=== PATIENT | female | born 1960 | race Caucasian/White ===

== ENCOUNTER 2020-03-10 18:52 | Inpatient (IN) | payer OTHER ==
[~2020-03-10] VITALS: Ht 167.6 cm; Wt 52.6 kg
[2020-03-10] MEDS ORDERED: IV NS 0.9% 1,000 ML BAG IV ONE (19:30)
[2020-03-10 19:36] LABS: BASOPHILS % (AUTO) 0.3 % (0.0-2.0); EOSINOPHILS % (AUTO) 0.2 % (0.0-6.0); HEMATOCRIT 41 % (33-45); HEMOGLOBIN 13.9 g/dL (11.5-14.8); LYMPHOCYTES # (AUTO) 1.9 /CMM (0.8-4.8); LYMPHOCYTES % (AUTO) 19.1 % (20.0-44.0); MEAN CORPUSCULAR HGB CONC 34 g/dl (31.0-36.0); MEAN CORPUSCULAR VOLUME 101 fL (82-100); MONOCYTES # (AUTO) 0.5 /CMM (0.1-1.30); MONOCYTES % (AUTO) 5.2 % (2.0-12.0); NEUTROPHILS # (AUTO) 7.4 /CMM (1.8-8.9); NEUTROPHILS % (AUTO) 75.2 % (43.0-81.0); PLATELET COUNT (AUTO) 207 /CMM (150-450); RED BLOOD CELL COUNT(AUTO) 4.06 MIL/uL (4.0-5.2); WHITE BLOOD COUNT (AUTO) 9.9 K/uL (4.3-11.0)
--- NOTE | 2020-03-10 19:39 | NUR ---
[id number], from home, weakness and diarrhea x 4 days, cough x 1 month. PT AAOX4, VSS. RR EVEN & UNLABORED. 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 DENIES ANDREWS, DIZZINESS, NUMBNESS/WEAKNESS AT THIS TIME. PT SEEN & EVAL'D BY DR. ORR. WILL CONT TO MONITOR.
[2020-03-10 19:59] LABS: CALCIUM, SERUM 9.2 mg/dL (8.5-10.1); POTASSIUM 3.7 mmol/L (3.5-5.1)
[2020-03-10 20:05] LABS: ALBUMIN 3.4 g/dL (3.4-5.0); BILIRUBIN,DIRECT 0.3 mg/dL (0.0-0.2); BILIRUBIN,TOTAL 0.6 mg/dL (0.2-1.0); TOTAL PROTEIN, SERUM 7.5 g/dL (6.4-8.2)
[2020-03-10 20:56] LABS: APPEARANCE,URINE CLEAR (CLEAR); BILIRUBIN,URINE NEGATIVE (NEGATIVE); BLOOD, URINE TRACE-INTA Ery/uL (NEGATIVE); COLOR,URINE YELLOW (YELLOW); KETONES,URINE TRACE (NEGATIVE); LEUKOCYTE ESTERASE ,URINE SMALL (NEGATIVE); NITRITE, URINE NEGATIVE (NEGATIVE); PH,URINE 7.5 (5.0-8.0); PROTEIN,URINE NEGATIVE (NEGATIVE); UGLUCOSE NEGATIVE (NEGATIVE); UROBILINOGEN,URINE 0.2 EU/dL (0.2)
[2020-03-10 21:04] LABS: BACTERIA,URINE None seen /HPF (None Seen); SQUAMOUS EPITHELIAL CELL,UR 0-2 /HPF (None Seen)
--- NOTE | 2020-03-10 22:00 | NUR ---
NOVEMBER ( FINANCIAL COORDINATOR ) [facility]. PT WILL GO TO [facility]. ACCEPTING MD: DR. MALLORY
--- NOTE | 2020-03-10 22:09 | NUR ---
FOUND PT USING CELLPHONE TALKING TO HER BROTHER, ADDIE. DENIES NUMBNESS/TINGLING SENSATION, ANDREWS, DIZZINESS, N/V, CP, SOB AT THIS TIME. PT ABLE SPEAK FLUENTLY, NO SLURRED SPEECH. NO ARM/LEG DRIFTING, NO ACUTE DISTRESS NOTED AT THIS TIME. ON TELE, NSR. WILL CONT TO MONITOR.
--- NOTE | 2020-03-11 01:00 | NUR ---
PT RESTING COMFORTABLY IN BED. NO ACUTE DISTRESS NOTED. WILL CONTINUE TO MONITOR
--- NOTE | 2020-03-11 01:36 | NUR ---
COVID SWAB COLLECTED AND SENT TO LAB
[2020-03-11] MEDS ORDERED: CITA40TA11 PO (03:22)
[2020-03-11] MEDS ORDERED: TRAZ-182 PO (03:22)
--- NOTE | 2020-03-11 04:07 | NUR ---
REPORT GIVEN TO EDGAR SHRESTHA FOR [facility]
--- NOTE | 2020-03-11 04:10 | NUR ---
TELE/RN NOTES RECEIVED REPORT FROM LASHAWN [facility], PATIENT WILL BECOMING TO ROOM 319
--- NOTE | 2020-03-11 04:25 | NUR ---
TELE/RN OPENING NOTES PATIENT ARRIVES ON UNIT VIA GURNEY. NO INJURIES DURING TRANSPORT. PATIENT IS ALERT AND ORIENTED X 4. STATES NO PAIN AT THE MOMENT. PATIENT IS ON ROOM AIR TOLERATING WELL. NO SIGNS OF SOB OR RESPIRATORY DISTRESS. PATIENT HAVE IV ACCES INTACT IN RIGHT AC G #20. SKIN IS INTACT. NO DISTRESS NOTED AT THIS TIME. SAFETY MEASURES ARE IN PLACE BED IS LOCKED AND PLACED IN THE LOWEST POSITION SIDE RAIL UP X 2. CALL LIGHT IN REACH. WILL CONTINUE TO MONITOR.
--- NOTE | 2020-03-11 04:30 | NUR ---
PT TRANSFERRED TO ROOM IN STABLE CONDITION
[2020-03-11] MEDS ORDERED: ACETAMINOPHEN 325 MG TABLET PO PRN (05:00)
[2020-03-11] MEDS ORDERED: HYDROCODONE/APAP 5/325MG TABLET PO PRN (05:00)
--- NOTE | 2020-03-11 06:00 | NUR ---
TELE/RN NOTES PATIENT EXPLAINED CONSENT FOR MRI OF THE HEAD AND BODY CHECK LIST FOR MRI.
--- NOTE | 2020-03-11 06:50 | NUR ---
TELE/RN CLOSING NOTES PATIENT IS IN BED RESTING. PATIENT IS ALERT AND ORIENTED X 4. STATES NO PAIN AT THE MOMENT. PATIENT IS ON ROOM AIR TOLERATING WELL. NO SIGNS OF SOB OR RESPIRATORY DISTRESS. PATIENT HAVE IV ACCES INTACT IN RIGHT AC G #20. NO DISTRESS NOTED AT THIS TIME. SAFETY MEASURES ARE IN PLACE BED IS LOCKED AND PLACED IN THE LOWEST POSITION SIDE RAIL UP X 2. ALL PATIENT NEEDS HAVE BEEN MET DURING SHIFT. CALL LIGHT IN REACH. WILL ENDORSE CARE TO DAY SHIFT.
[2020-03-11 06:56] LABS: BASOPHILS # (AUTO) 0.1 /CMM (0.0-0.2); BASOPHILS % (AUTO) 0.5 % (0.0-2.0); EOSINOPHILS % (AUTO) 0.4 % (0.0-6.0); HEMATOCRIT 39 % (33-45); HEMOGLOBIN 12.7 g/dL (11.5-14.8); LYMPHOCYTES # (AUTO) 2.4 /CMM (0.8-4.8); LYMPHOCYTES % (AUTO) 20.6 % (20.0-44.0); MEAN CORPUSCULAR HGB CONC 32 g/dl (31.0-36.0); MEAN CORPUSCULAR VOLUME 102 fL (82-100); MONOCYTES # (AUTO) 0.7 /CMM (0.1-1.30); MONOCYTES % (AUTO) 5.8 % (2.0-12.0); NEUTROPHILS # (AUTO) 8.4 /CMM (1.8-8.9); NEUTROPHILS % (AUTO) 72.7 % (43.0-81.0); PLATELET COUNT (AUTO) 183 /CMM (150-450); RED BLOOD CELL COUNT(AUTO) 3.84 MIL/uL (4.0-5.2); WHITE BLOOD COUNT (AUTO) 11.6 K/uL (4.3-11.0)
[2020-03-11 07:28] LABS: THYROID STIMULATING HORMONE 1.866 uIU/mL (0.358-3.74)
[2020-03-11 07:29] LABS: ALBUMIN 2.6 g/dL (3.4-5.0); BILIRUBIN,TOTAL 0.5 mg/dL (0.2-1.0); CALCIUM, SERUM 8.1 mg/dL (8.5-10.1); CREATININE 0.7 mg/dL (0.6-1.3); POTASSIUM 3.6 mmol/L (3.5-5.1); TOTAL PROTEIN, SERUM 6.1 g/dL (6.4-8.2)
--- NOTE | 2020-03-11 07:30 | NUR ---
RN Opening note Received patient AO x 3-4, able to responds all stimuli. Denies pain but c/o numbness finger tips and lower extremities. Skin is warm to touch, keep clean/dry, intact IV site. Respiratory even and unlabored in room air, no distress observed. Keep bed in locked with elevated HOB for ensure airway and aspiration precaution, call light within reach, will continue to monitor.
[2020-03-11 08:00] VITALS: BP 156/95
--- NOTE | 2020-03-11 08:04 | NUR ---
MRI APPROVED BY DR. CAREY. ICE CREAM SCOOPER RYAN NOTIFIED VIA TEXT
[2020-03-11 08:59] VITALS: BP 156/95
[2020-03-11] MEDS ORDERED: METOPROLOL SUCCINATE 25 MG TAB.SR.24H PO SCH (09:00)
[2020-03-11] MEDS ORDERED: THIAMINE HCL 100 MG TABLET PO SCH (09:30)
[2020-03-11] MEDS ORDERED: FOLIC ACID 1 MG TABLET PO SCH (09:30)
[2020-03-11] MEDS ORDERED: Thiamine HCL PO (09:33)
[2020-03-11] MEDS ORDERED: METO25TA4 PO (09:33)
[2020-03-11] MEDS ORDERED: Folic Acid PO (09:33)
--- NOTE | 2020-03-11 11:30 | NUR ---
Patient transfer to [facility] room 2027, given report Mary/EDGAR phone number at [phone].
--- NOTE | 2020-03-11 12:28 | NUR ---
Patient mentioned that Albuterol makes numbness on fingers , lower extremities. Informed Dr. Zaidi.
--- NOTE | 2020-03-11 13:00 | NUR ---
2 projector booth operator picked up patient, patient left in stable condition.
--- NOTE | 2020-03-11 13:31 | NUR ---
SW Consult: shipping services sales representative consult requested by MD Zaidi for debility. Per Notes, pt is a [id number] female who has not taking care of herself since her of cancer last year. She is not eating much, not being active physically, drinks 3 glasses of wine a day, and using marijuana regularly. She feels she cannot take care of herself. She admits she has anxiety but denies depression. CHILD ADVOCATE conducted chart review and attempted to meet with the pt. CHILD ADVOCATE consulted with [facility] Neli Brito and was informed pt was transferred to [facility] due to her insurance. No social service needs are required at this time.
[2020-03-11] MEDS ORDERED: TRAZODONE 50 MG TABLET PO SCH (22:00)
== END 2020-03-11 13:08 | disposition short-term general hospital (02) | DRG 754 ==
LOC: ER 18:56 → MED 03-11 03:56 → TELE 03-11 05:11
PROVIDERS: ADMIT Internal Medicine; ATTEND Internal Medicine
DX: F32.9 Major depressive disorder, single episode, unspecified (principal); R53.1 Weakness; F41.9 Anxiety disorder, unspecified; I10 Essential (primary) hypertension; F10.20 Alcohol dependence, uncomplicated; F12.90 Cannabis use, unspecified, uncomplicated; F17.210 Nicotine dependence, cigarettes, uncomplicated; R20.0 Anesthesia of skin; R74.0 Nonspecific elevation of levels of transaminase and lactic acid dehydrogenase [LDH]
CPT/HCPCS: 36415; 70450-TC; 71045-TC; 80048-TC; 80053-TC; 80076-TC; 81000-TC; 84443-TC; 84484-TC; 85025-TC; 87081-TC; 87086-TC; G0378; G0480; J7030

== ENCOUNTER 2022-03-26 23:19 | Inpatient (IN) | payer OTHER ==
[~2022-03-26] VITALS: Ht 172.7 cm; Wt 59.0 kg
[~2022-03-26 23:19] MED LIST: CITA40TA11 PO; Folic Acid PO; METO25TA4 PO; TRAZ-182 PO; Thiamine HCL PO
--- NOTE | 2022-03-26 23:50 | NUR ---
[id number] FROM HOME C/O LEFT HIP PAIN RAD TO LEFT LEG/HIP S/P GLF ON WEDNESDAY.NO GROSS DEFORMITY NOTED. PT AWAKE AND ALERT BREATHING EVEN AND UNLABORED. CHANGED INTO GOWN AND PLACED ON MONITOR AND V/S WNL.
--- NOTE | 2022-03-26 23:54 | NUR ---
XRAY AT BEDSIDE
[2022-03-26] MEDS ORDERED: HYDROCODONE/APAP 5/325MG TABLET ONE (23:59)
[2022-03-27] MEDS ORDERED: HYDROCODONE/APAP 5/325MG TABLET PO ONE
[2022-03-27] MEDS ORDERED: ONDANSETRON HCL/PF 4 MG/2 ML VIAL ONE ×2 (00:29→05:46)
[2022-03-27] MEDS ORDERED: MORPHINE SULFATE INJ 4 MG/ML DISP.SYRIN ONE ×2 (00:29→05:46)
[2022-03-27] MEDS ORDERED: MORPHINE SULFATE INJ 2 MG/ML DISP.SYRIN IV ONE ×3 (00:30→10:00)
[2022-03-27] MEDS ORDERED: ONDANSETRON HCL/PF 4 MG/2 ML VIAL IV ONE ×2 (00:30→06:00)
[2022-03-27 00:47] LABS: BASOPHILS # (AUTO) 0.1 K/uL (0.0-0.2); BASOPHILS % (AUTO) 0.4 % (0.0-2.0); EOSINOPHILS % (AUTO) 1.3 % (0.0-6.0); HEMATOCRIT 34 % (33-45); HEMOGLOBIN 11.1 g/dL (11.5-14.8); LYMPHOCYTES # (AUTO) 3.7 K/uL (0.8-4.8); LYMPHOCYTES % (AUTO) 28.8 % (20.0-44.0); MEAN CORPUSCULAR HGB CONC 33 g/dl (31.0-36.0); MEAN CORPUSCULAR VOLUME 97 fL (82-100); MONOCYTES # (AUTO) 0.9 K/uL (0.1-1.30); MONOCYTES % (AUTO) 7.1 % (2.0-12.0); NEUTROPHILS # (AUTO) 8.1 K/uL (1.8-8.9); NEUTROPHILS % (AUTO) 62.4 % (43.0-81.0); PLATELET COUNT (AUTO) 198 K/uL (150-450); RED BLOOD CELL COUNT(AUTO) 3.54 MIL/uL (4.0-5.2); WHITE BLOOD COUNT (AUTO) 12.9 K/uL (4.3-11.0)
[2022-03-27 01:07] LABS: CALCIUM, SERUM 8.9 mg/dL (8.5-10.1); CREATININE 0.9 mg/dL (0.6-1.3); POTASSIUM 4.5 mmol/L (3.5-5.1)
--- NOTE | 2022-03-27 04:18 | NUR ---
[employer] PRODUCT DEVELOPMENT MANAGER TO FOLLOW UP ON PEER TO PEER.
--- NOTE | 2022-03-27 04:33 | NUR ---
PT SLEEPING COMOFRTABLY BREATHING EVEN AND UNLABORED. EASILY AROUSABLE, V/S WNL.
--- NOTE | 2022-03-27 07:06 | NUR ---
XRAY AT BEDSIDE
--- NOTE | 2022-03-27 07:59 | NUR ---
CALLED "MA[employer]" STORE OPERATIONS ASSOCIATE FOR [facility]. NO ANSWER, VOICEMAIL IS FULL.
--- NOTE | 2022-03-27 08:37 | NUR ---
MA[facility] CM FOR [facility] [phone]
--- NOTE | 2022-03-27 09:11 | NUR ---
PT RESTING COMFORTABLY IN BED, VITALS ARE WITHIN NORMAL LIMITS
[2022-03-27] MEDS ORDERED: MORPHINE SULFATE INJ 2 MG/ML DISP.SYRIN ONE (09:52)
--- NOTE | 2022-03-27 11:01 | NUR ---
CALLED [facility] TRANSFER LINE, COORDINATOR PAGED. AWAITING CALL BACK.
--- NOTE | 2022-03-27 12:46 | NUR ---
PAGED DR. HOLLAND.
[2022-03-27] MEDS ORDERED: ATOR10TA PO (13:00)
[2022-03-27] MEDS ORDERED: GABA-536 PO (13:00)
[2022-03-27] MEDS ORDERED: PANT40TA49 PO (13:00)
[2022-03-27] MEDS ORDERED: MIRT-90 PO (13:00)
--- NOTE | 2022-03-27 13:13 | NUR ---
BED GIVEN 324-1
--- NOTE | 2022-03-27 13:20 | NUR ---
REPORT GIVEN TO LULI FOR [facility]
--- NOTE | 2022-03-27 13:45 | NUR ---
PT TRANSPORTED TO [facility] 3W IN STABLE CONDITION.
[2022-03-27] MEDS ORDERED: TRAZODONE 50 MG TABLET PO PRN (14:00)
[2022-03-27] MEDS ORDERED: ONDANSETRON HCL/PF 4 MG/2 ML VIAL IV PRN (14:00)
[2022-03-27] MEDS ORDERED: HYDROMORPHONE MDV 0.5 MG in IV D5W 50 ML IV PRN (14:00)
[2022-03-27] MEDS ORDERED: HYDROCODONE/APAP 5/325MG TABLET PO PRN (14:00)
[2022-03-27] MEDS ORDERED: CLONIDINE HCL 0.1 MG TABLET PO PRN (14:30)
[2022-03-27] MEDS: HYDROMORPHONE 1 MG/1 ML DISP.SYRIN IV PRN ×2 (14:43→18:40)
[2022-03-27] MEDS: IV D5 LR 1,000 ML IV PRN (15:56)
[2022-03-27] MEDS: GABAPENTIN 400 MG CAPSULE PO SCH ×2 (16:11→21:48)
--- NOTE | 2022-03-27 16:28 | NUR ---
MS IMPORT MANAGER NOTE RECEIVED ER REPORT FROM NURSE MORA. PATIENT ARRIVED AT THE UNIT AT 1430. PATIENT A/O X4. ABLE TO MAKE NEEDS KNOWN. PT ORIENTED TO STAFF AND ROOM. PT ON ROOM AIR, TOLERATING WELL, BREATHING EVEN AND UNLABORED, NO ACUTE RESPIRATORY DISTRESS NOTED. PATIENT COMPLAINING OF 10/10 PAIN, GIVEN .5MG DILAUDID VIA IV. PATIENT HAD IMMEDIATE RELIEF DOWN TO 2/10 PAIN. SKIN IS INTACT. IV ACCESS NOTED ON LW G#20 AND PATENT WITH D5LR 75CC/HR. REINFORCED [facility] TEACHING FOR NEXT DAY'S PROCEDURE AFTER MIDNIGHT TODAY. PATIENT VERBALIZED UNDERSTANDING. PATIENT'S BED IN LOWEST LOCKED POSITION, SIDE RAILS UP X2 CALL LIGHT AND TRAY TABLE WITHIN PLACED W/I EASY REACH OF PT.
[2022-03-27] MEDS: MIRTAZAPINE 15 MG TABLET PO SCH (18:43)
--- NOTE | 2022-03-27 19:01 | NUR ---
MS RN CLOSING NOTE PATIENT A/O X4. ABLE TO MAKE NEEDS KNOWN. LYING SUPINE WITH HEAD OF BED SLIGHTLY ELEVATED. PATIENT'S PAIN IS MANAGED, WAS GIVEN 0.5 MG DILAUDID AT 1840 REPORTS 2/10 PAIN. PT ON ROOM AIR, TOLERATING WELL, BREATHING EVEN AND UNLABORED, NO ACUTE RESPIRATORY DISTRESS NOTED. IV ACCESS NOTED ON LW G#20 AND PATENT WITH D5LR 75CC/HR. REINFORCED POSSIBLE NPO HEALTH TEACHING FOR NEXT DAY'S PROCEDURE AFTER MIDNIGHT TODAY. PATIENT VERBALIZED UNDERSTANDING. ALL NEEDS ATTENDED. ENDORSED TO THE BOAT OFFICER NURSE.
--- NOTE | 2022-03-27 19:22 | NUR ---
MS RN OPENING NOTES: RECEIVED PATIENT AWAKE IN BED , BE DIN LOW POSITION CALL LIGHTS WITHIN REACH, NO COMPLAIN OF PAIN AND DISCOMFORT AT THIS TIME ON ROOM AIR SATURATING WELL, PATIENT A/OX4 ABLE TO EXPRESS NEEDS, ON BED REST NPO POST MIDNIGHT, WITH IV LINE AT D5LR@75ML/HR INFUSING WELL, PATIENT KEPT CLEAN AND DRY ALL NEEDS MET WILL CONTINUE TO MONITOR.
[2022-03-27 20:00] VITALS: BP_SYST 111; BP_SYST 131; BP_DIAS 58; BP_DIAS 89
[2022-03-27] MEDS: ACETAMINOPHEN 325 MG TABLET PO SCH (20:44)
[2022-03-27] MEDS: ATORVASTATIN 10 MG TABLET PO SCH (21:48)
[2022-03-28] MEDS: ACETAMINOPHEN 325 MG TABLET PO SCH ×4 (02:24→20:41)
[2022-03-28] MEDS: IV D5 LR 1,000 ML IV PRN ×2 (05:25→20:41)
[2022-03-28 06:34] LABS: BASOPHILS # (AUTO) 0.1 K/uL (0.0-0.2); BASOPHILS % (AUTO) 0.7 % (0.0-2.0); EOSINOPHILS % (AUTO) 4.4 % (0.0-6.0); HEMATOCRIT 29 % (33-45); HEMOGLOBIN 9.7 g/dL (11.5-14.8); LYMPHOCYTES # (AUTO) 2.7 K/uL (0.8-4.8); LYMPHOCYTES % (AUTO) 35.8 % (20.0-44.0); MEAN CORPUSCULAR HGB CONC 34 g/dl (31.0-36.0); MEAN CORPUSCULAR VOLUME 99 fL (82-100); MONOCYTES # (AUTO) 0.6 K/uL (0.1-1.30); MONOCYTES % (AUTO) 8.6 % (2.0-12.0); NEUTROPHILS # (AUTO) 3.8 K/uL (1.8-8.9); NEUTROPHILS % (AUTO) 50.5 % (43.0-81.0); PLATELET COUNT (AUTO) 191 K/uL (150-450); RED BLOOD CELL COUNT(AUTO) 2.93 MIL/uL (4.0-5.2); WHITE BLOOD COUNT (AUTO) 7.6 K/uL (4.3-11.0)
[2022-03-28] MEDS: HYDROMORPHONE 1 MG/1 ML DISP.SYRIN IV PRN ×4 (06:35→21:58)
[2022-03-28 07:04] LABS: CALCIUM, SERUM 7.8 mg/dL (8.5-10.1); CREATININE 0.9 mg/dL (0.6-1.3); MAGNESIUM 1.7 mg/dL (1.8-2.4); POTASSIUM 3.7 mmol/L (3.5-5.1)
--- NOTE | 2022-03-28 07:18 | NUR ---
MS RN CLOSING NOTES: PATIENT SLEEP IN BED COMFORTABLY, AROUSABLE TO VERBAL STIMULI, BED IN LOW POSITION, CALL LIGHTS WITHIN REACH, NO COMPLAIN OF PAIN AND DISCOMFORT AT THIS TIME, ON ROOM AIR SATURATING WELL, WITH ONGOING IV LINE AT LEFT WRIST: 20 WITH ONGOING D5LR@75ML/HR INFUSING WELL, PATIENT KEPT CLEAN AND DRY ALL NEEDS MET ENDORSE TO INCOMING SHIFT.
[2022-03-28 08:00] VITALS: BP 130/76
--- NOTE | 2022-03-28 08:00 | NUR ---
MS RN OPENING NOTE Patient in bed, awake. A/O x 4, able to make needs known. On room air, breathing evenly and unlabored. No SOB or s/s of distress noted. IV access on Left wrist #20 infusing D5LR at 75 ml/hr. Patient denies pain at this time. Safety precautions in place: bed in low, locked position; siderails up x 2; call light within reach. Will continue to monitor.
[2022-03-28] MEDS: CITALOPRAM HYDROBROMIDE 20 MG TABLET PO SCH (08:42)
[2022-03-28] MEDS: PANTOPRAZOLE 40 MG TABLET.DR PO SCH (08:42)
[2022-03-28] MEDS: GABAPENTIN 400 MG CAPSULE PO SCH ×4 (08:46→20:41)
[2022-03-28] MEDS: ENOXAPARIN SODIUM 40 MG/0.4 ML DISP.SYRIN SQ SCH (08:48)
[2022-03-28] MEDS ORDERED: Magnesium 1GM/D5W 100ML PREMIX 100 ML IV SCH (10:00)
--- NOTE | 2022-03-28 12:02 | NUR ---
RN NOTE Patient complained of pain on left hip 9/10 on pain scale, PRN Dilaudid 0.5 mg given. will continue to monitor.
--- NOTE | 2022-03-28 14:00 | NUR ---
RN NOTE Consents obtained for Left hip hemiarthroplasty, placed in chart.
[2022-03-28 16:00] VITALS: BP 110/69
[2022-03-28] MEDS: MIRTAZAPINE 15 MG TABLET PO SCH (17:14)
--- NOTE | 2022-03-28 19:35 | NUR ---
RN OPENING NOTE PATIENT IN BED, EYES CLOSED. EASILY AWAKENED. PATIENT IS ABLE TO MAKE NEEDS KNOWN, A/O X 3 AT THIS TIME. PATIENT IS ON RA, TOLERATING WELL. NO SOB OR RESPIRATORY DISTRESS NOTED. BREATHING EVEN AND UNLABORED. PATIENT TO BE NPO AT OK FOR PROCEDURE IN AM. PATIENT SAFETY MEASURES IN PLACE: BED LOCKED AND IN LOWEST POSITION, CALL LIGHT WITHIN REACH, SIDE RAILS UP. WILL MONITOR PATIENT CLOSELY.
--- NOTE | 2022-03-28 19:50 | NUR ---
MS RN CLOSING NOTE Patient in bed, asleep. A/O x 4, able to make needs known. Stable on room air, breathing evenly and unlabored. No SOB or s/s of distress noted. IV access on Left wrist #20 infusing D5LR at 75 ml/hr. All needs attended to. Due meds given. Turned and repositioned, as tolerated. Safety precautions maintained: bed in low, locked position; siderails up x 2; call light within reach. Will endorse to shift mechanic nurse for [facility].
[2022-03-28 20:00] VITALS: BP 103/65
[2022-03-28] MEDS: ATORVASTATIN 10 MG TABLET PO SCH (21:48)
--- NOTE | 2022-03-28 21:58 | NUR ---
RN NOTE PATIENT GIVEN DILAUDID 0.5 MG IV FOR SEVERE PAIN ON THE L HIP 04/11. WILL REASSESS MED EFFECTIVENESS AT A LATER TIME.
[2022-03-29] MEDS: ACETAMINOPHEN 325 MG TABLET PO SCH ×3 (02:07→13:16)
[2022-03-29] MEDS: HYDROMORPHONE 1 MG/1 ML DISP.SYRIN IV PRN ×2 (02:39→06:43)
--- NOTE | 2022-03-29 02:39 | NUR ---
RN NOTE PATIENT GIVEN DILAUDID 0.5 MG IV FOR SEVERE PAIN ON THE L HIP. WILL REASSESS MED EFFECTIVENESS AT A LATER TIME.
--- NOTE | 2022-03-29 07:36 | NUR ---
RN CLOSING NOTE PATIENT IN BED, EYES CLOSED. EASILY AWAKENED. PATIENT IS ABLE TO MAKE NEEDS KNOWN, A/O X 3 AT THIS TIME. PATIENT IS ON RA, TOLERATING WELL. NO SOB OR RESPIRATORY DISTRESS NOTED. BREATHING EVEN AND UNLABORED. PATIENT NOW NPO. PATIENT SAFETY MEASURES IN PLACE: BED LOCKED AND IN LOWEST POSITION, CALL LIGHT WITHIN REACH, SIDE RAILS UP. ALL NEEDS MET AND ATTENDED. ALL ORDERS CARRIED OUT. WILL ENDORSE TO DAY SHIFT NURSE FOR [facility].
--- NOTE | 2022-03-29 07:50 | NUR ---
MS RN OPENING NOTE Patient in bed, asleep. A/O x 4. On room air, breathing evenly and unlabored. No SOB or s/s of distress noted. IV access on Left wrist #20 infusing D5LR @ 75ml/hr. Patient kept NPO except meds for procedure this AM. Safety precautions in place: bed in low, locked position; siderails up x 2; call light within reach. Will continue to monitor.
[2022-03-29 08:05] LABS: BASOPHILS % (AUTO) 0.5 % (0.0-2.0); EOSINOPHILS % (AUTO) 2.6 % (0.0-6.0); HEMATOCRIT 29 % (33-45); HEMOGLOBIN 9.5 g/dL (11.5-14.8); LYMPHOCYTES # (AUTO) 3.1 K/uL (0.8-4.8); LYMPHOCYTES % (AUTO) 31.5 % (20.0-44.0); MEAN CORPUSCULAR HGB CONC 33 g/dl (31.0-36.0); MEAN CORPUSCULAR VOLUME 99 fL (82-100); MONOCYTES # (AUTO) 0.9 K/uL (0.1-1.30); MONOCYTES % (AUTO) 9.3 % (2.0-12.0); NEUTROPHILS # (AUTO) 5.5 K/uL (1.8-8.9); NEUTROPHILS % (AUTO) 56.1 % (43.0-81.0); PLATELET COUNT (AUTO) 232 K/uL (150-450); RED BLOOD CELL COUNT(AUTO) 2.93 MIL/uL (4.0-5.2); WHITE BLOOD COUNT (AUTO) 9.8 K/uL (4.3-11.0)
[2022-03-29 08:16] LABS: CALCIUM, SERUM 7.6 mg/dL (8.5-10.1); CREATININE 0.9 mg/dL (0.6-1.3); MAGNESIUM 1.9 mg/dL (1.8-2.4); POTASSIUM 4.2 mmol/L (3.5-5.1)
[2022-03-29 08:34] LABS: THYROID STIMULATING HORMONE 4.022 uIU/mL (0.358-3.74)
[2022-03-29] MEDS: ENOXAPARIN SODIUM 40 MG/0.4 ML DISP.SYRIN SQ SCH (09:00)
--- NOTE | 2022-03-29 09:00 | NUR ---
RN NOTE Lovenox scheduled for 0900 held, patient to have surgery at 1000.
[2022-03-29] MEDS: CITALOPRAM HYDROBROMIDE 20 MG TABLET PO SCH (09:12)
[2022-03-29] MEDS: PANTOPRAZOLE 40 MG TABLET.DR PO SCH (09:12)
[2022-03-29] MEDS: GABAPENTIN 400 MG CAPSULE PO SCH ×4 (09:12→21:20)
[2022-03-29] MEDS ORDERED: FENTANYL PF 250MCG/5ML AMPUL ONE (09:35)
[2022-03-29] MEDS ORDERED: ROCURONIUM BROMIDE 50 MG/5 ML ONE (09:36)
[2022-03-29] MEDS ORDERED: ANESTHESIA TRAY IN PYXIS 1 EA TRAY MC ONE (09:50)
--- NOTE | 2022-03-29 09:55 | NUR ---
RN NOTE Patient brought to OR for Left hip hemiarthroplasty.
[2022-03-29] MEDS ORDERED: BUPIVACAINE 0.25% 75 MG/30 ML VIAL ONE (11:04)
--- NOTE | 2022-03-29 13:00 | NUR ---
RN NOTE Patient brought back to room 324-1. Patient is S/P Left hip hemiarhtroplasty. VS taken as follows: BP 113/68, HR 93, RR 19, Temp 97.8, SPO2 96% at 3 LPM O2 via NC. Patient hooked back on D5LR at 75 ml/hr. Surgical incision on Left hip c/d/i. Patient denies any pain at this time. Will continue to monitor patient. Addendum: 03/29/22 at 1749 by SANDRO JONAS RN ADD: Antunez catheter noted draining to a yellow colored urine.
--- NOTE | 2022-03-29 13:15 | NUR ---
RN NOTE Patient remains stable with VS: BP 109/65, HR 91, RR 18, Temp 97.8, SPO2 95% on 3 LPM O2 via NC. Surgical incision remains c/d/i. Will continue to monitor.
--- NOTE | 2022-03-29 13:30 | NUR ---
RN NOTE Patient remains stable with VS: BP 110/65, HR 89, RR 19, Temp 97.7, SPO2 94% on 3 LPM O2 via NC. Surgical incision remains c/d/i. Will continue to monitor.
[2022-03-29] MEDS ORDERED: ONDANSETRON HCL/PF 4 MG/2 ML VIAL IV PRN (13:45)
--- NOTE | 2022-03-29 13:45 | NUR ---
RN NOTE Patient remains stable with VS: BP 108/65, HR 90, RR 19, Temp 97.9, SPO2 95% on 3 LPM O2 via NC. Surgical incision remains c/d/i. Will continue to monitor.
[2022-03-29] MEDS ORDERED: BISACODYL SUPP (10 MG) 10 MG/SUPP.RECT SUPP.RECT RC PRN (14:00)
[2022-03-29] MEDS ORDERED: DOCUSATE SODIUM 100 MG CAPSULE PO PRN ×2 (14:00)
[2022-03-29] MEDS ORDERED: SENNOSIDES 8.6 MG TABLET PO PRN ×2 (14:00)
[2022-03-29] MEDS ORDERED: DOCUSATE SODIUM 250 MG CAPSULE PO PRN ×2 (14:00)
[2022-03-29] MEDS ORDERED: ACETAMINOPHEN 325 MG TABLET PO PRN (14:00)
--- NOTE | 2022-03-29 14:00 | NUR ---
RN NOTE Patient remains stable with VS: BP 108/60, HR 95, RR 19, Temp 97.9, SPO2 94% on 3 LPM O2 via NC. Patient denies any pain or discomfort at this time. Surgical incision remains c/d/i. will continue to monitor.
[2022-03-29] MEDS: IV D5 LR 1,000 ML IV PRN (14:01)
[2022-03-29 16:13] LABS: BASOPHILS % (AUTO) 0.2 % (0.0-2.0); EOSINOPHILS % (AUTO) 0.1 % (0.0-6.0); HEMATOCRIT 28 % (33-45); HEMOGLOBIN 8.8 g/dL (11.5-14.8); LYMPHOCYTES # (AUTO) 0.6 K/uL (0.8-4.8); LYMPHOCYTES % (AUTO) 5.2 % (20.0-44.0); MEAN CORPUSCULAR HGB CONC 32 g/dl (31.0-36.0); MEAN CORPUSCULAR VOLUME 99 fL (82-100); MONOCYTES # (AUTO) 0.3 K/uL (0.1-1.30); MONOCYTES % (AUTO) 2.7 % (2.0-12.0); NEUTROPHILS # (AUTO) 10.7 K/uL (1.8-8.9); NEUTROPHILS % (AUTO) 91.8 % (43.0-81.0); PLATELET COUNT (AUTO) 246 K/uL (150-450); RED BLOOD CELL COUNT(AUTO) 2.79 MIL/uL (4.0-5.2); WHITE BLOOD COUNT (AUTO) 11.6 K/uL (4.3-11.0)
[2022-03-29 16:53] LABS: BILIRUBIN,URINE NEGATIVE (NEGATIVE); COLOR,URINE YELLOW (YELLOW); LEUKOCYTE ESTERASE ,URINE NEGATIVE (NEGATIVE); NITRITE, URINE NEGATIVE (NEGATIVE); PROTEIN,URINE NEGATIVE (NEGATIVE); UGLUCOSE NEGATIVE (NEGATIVE); UROBILINOGEN,URINE 0.2 EU/dL (0.2)
[2022-03-29] MEDS: MIRTAZAPINE 15 MG TABLET PO SCH (17:10)
[2022-03-29] MEDS: ANCEF 1 GM/50 ML D5W IV SCH ×2 (17:11)
[2022-03-29 17:19] LABS: BACTERIA,URINE RARE /HPF (None Seen); WBC,URINE 0-2 /HPF (0-3)
--- NOTE | 2022-03-29 19:02 | NUR ---
MS RN CLOSING NOTE Patient in bed, resting. A/O x 4, able to make needs known. On O2 at 3 LPM, breathing evenly and unlabored. No SOB or s/s of distress noted. IV access on Left wrist #20 infusing D5LR @ 75ml/hr. Patient is s/p Left hip hemiarthroplasty. Surgical dressing is c/d/i. All needs attended to. Due meds given. Safety precautions in place: bed in low, locked position; siderails up x 2; call light within reach. Will endorse to director chemistry nurse for [facility].
--- NOTE | 2022-03-29 19:37 | NUR ---
MS RN OPENING NOTE; Received Patient in bed, resting.A A/O x 4, able to make needs known. No SOB or s/s of distress noted. IV access on Left wrist #20 infusing D5LR @ 75ml/hr. Patient is s/p Left hip hemiarthroplasty. Surgical dressing intact no bleeding noted.Safety precautions in place: bed in low, locked position; siderails up x 2; call light within reach. Will continue to monitor.
[2022-03-29 20:00] VITALS: BP 117/64
[2022-03-29] MEDS: ATORVASTATIN 10 MG TABLET PO SCH (21:20)
[2022-03-29] MEDS: HYDROCODONE/APAP 5/325MG TABLET PO PRN (21:48)
[2022-03-30] MEDS: ANCEF 1 GM/50 ML D5W IV SCH ×2 (02:28)
[2022-03-30] MEDS: HYDROCODONE/APAP 5/325MG TABLET PO PRN ×4 (02:30→15:04)
--- NOTE | 2022-03-30 06:17 | NUR ---
MS RN OPENING NOTE; Patient in bed sleeping but easy to aroused,A A/O x 4, able to make needs known. No SOB or s/s of distress noted. IV access on Left wrist #20 infusing D5LR @ 75ml/hr.due meds given as order,all needs attented, Patient is s/p Left hip hemiarthroplasty. Surgical dressing intact no bleeding noted.Safety precautions in place: bed in low, locked position; siderails up x 2; call light within reach. Will endorsed to next shift.
[2022-03-30 07:02] LABS: HEMATOCRIT 24 % (33-45); HEMOGLOBIN 7.7 g/dL (11.5-14.8); LYMPHOCYTES # (AUTO) 1.7 K/uL (0.8-4.8); LYMPHOCYTES % (AUTO) 12.1 % (20.0-44.0); MEAN CORPUSCULAR HGB CONC 32 g/dl (31.0-36.0); MEAN CORPUSCULAR VOLUME 99 fL (82-100); MONOCYTES # (AUTO) 1.5 K/uL (0.1-1.30); MONOCYTES % (AUTO) 10.2 % (2.0-12.0); NEUTROPHILS # (AUTO) 11.1 K/uL (1.8-8.9); NEUTROPHILS % (AUTO) 77.7 % (43.0-81.0); PLATELET COUNT (AUTO) 246 K/uL (150-450); RED BLOOD CELL COUNT(AUTO) 2.41 MIL/uL (4.0-5.2); WHITE BLOOD COUNT (AUTO) 14.3 K/uL (4.3-11.0)
[2022-03-30 07:22] LABS: CALCIUM, SERUM 7.4 mg/dL (8.5-10.1); CREATININE 0.8 mg/dL (0.6-1.3); POTASSIUM 4.2 mmol/L (3.5-5.1)
--- NOTE | 2022-03-30 07:28 | NUR ---
MS RN OPENING NOTE RECEIVED PT ASLEEP IN BED, EASILY AROUSED. A/O X4, ABLE TO MAKE NEEDS KNOWN. ON O2 AT 2L/MIN VIA NASAL CANNULA, TOLERATING WELL. NO SOB NOTED. NOT IN ANY SIGN OF RESPIRATORY DISTRESS. IV ACCESS IN L WRIST G#20, INTACT AND PATENT WITH D5 LR INFUSING AT 75ML/HR. YEPEZ CATH IN PLACE AND DRAINING WELL. ON S/P LEFT HIP HEMIARTHROPLASTY, SURGICAL INCISION C/D/I. SAFETY MEASURES IN PLACE: BED IN LOWEST AND LOCKED POSITION, SIDE RAILS UP X2, AND CALL LIGHT WITHIN REACH. WILL CONTINUE TO MONITOR PT.
[2022-03-30 08:12] VITALS: BP 130/72
[2022-03-30] MEDS ORDERED: FERR325T23 PO (08:37)
[2022-03-30] MEDS ORDERED: ENOX40DI SUBCUT (08:37)
[2022-03-30] MEDS ORDERED: HYDR-3976 GT (08:37)
[2022-03-30] MEDS ORDERED: ENOXAPARIN SODIUM 40 MG/0.4 ML DISP.SYRIN SQ SCH (09:00)
[2022-03-30] MEDS: CITALOPRAM HYDROBROMIDE 20 MG TABLET PO SCH (09:08)
[2022-03-30] MEDS: GABAPENTIN 400 MG CAPSULE PO SCH ×3 (09:08→17:23)
[2022-03-30] MEDS: PANTOPRAZOLE 40 MG TABLET.DR PO SCH ×2 (09:09→09:20)
--- NOTE | 2022-03-30 10:42 | NUR ---
RN NOTE PT C/O LEFT HIP PAIN WITH PAIN SCALE LEVEL OF 8/10. NORCO 5/325MG 2 TABS ADMINISTERED ORDERED PRN Q4HRS FOR SEVERE PAIN. WILL MONITOR AND REASSESS PT.
[2022-03-30] MEDS: IV D5 LR 1,000 ML IV PRN (12:24)
[2022-03-30] MEDS ORDERED: SOD FERRIC GLUC 125 MG in IV NS 0.9% 100 ML IV SCH (14:00)
[2022-03-30 16:11] VITALS: BP 120/67
[2022-03-30] MEDS: MIRTAZAPINE 15 MG TABLET PO SCH (17:23)
--- NOTE | 2022-03-30 18:30 | NUR ---
BODY DESIGNER NOTE PT DISCHARGED TO [facility] IN STABLE CONDITION. PT A/O X4, ABLE TO MAKE NEEDS KNOWN. ON RA, TOLERATING WELL WITH SPO2 96%. NO SOB NOTED. NOT IN ANY SIGN OF RESPIRATORY DISTRESS. VITAL SIGNS TAKEN, STABLE, AND RECORDED. PT REFUSED SKIN ASSESSMENTS AND PHOTOGRAPHS OF SKIN ISSUES. ALL BELONGINGS ACCOUNTED FOR. DISCHARGED INSTRUCTIONS AND HEALTH TEACHINGS GIVEN TO PT AND PT VERBALIZED UNDERSTANDING. IV ACCESS IN LEFT WRIST G#20 REMOVED WITH NO ACTIVE BLEEDING NOTED. DRY PRESSURE DRESSING APPLIED AT SITE. ON S/P LEFT HIP HEMIARTHROPLASTY, SURGICAL INCISION C/D/I. DENIES PAIN OR DISCOMFORT AT THIS TIME. REPORT GIVEN EARLIER TO EDGAR MURILLO OF [facility]. PT LEFT THE UNIT AT 1820 VIA GURNEY ACCOMPANIED BY 2 REAL ESTATE INSTRUCTOR. AND CHARGED NURSE AWARE OF DISCHARGED.
== END 2022-03-30 18:15 | DRG 323 ==
LOC: ER 23:27 → MED 03-27 13:48
PROVIDERS: ADMIT Internal Medicine; ATTEND Internal Medicine
PROC: 0SRS0JZ Replacement of Left Hip Joint, Femoral Surface with Synthetic Substitute, Open Approach (ICD-10-PCS; principal; 2022-03-29)
DX: S72.002A Fracture of unspecified part of neck of left femur, initial encounter for closed fracture (principal); D62 Acute posthemorrhagic anemia; E78.5 Hyperlipidemia, unspecified; F12.20 Cannabis dependence, uncomplicated; E83.42 Hypomagnesemia; D50.9 Iron deficiency anemia, unspecified; I10 Essential (primary) hypertension; Z20.822 Contact with and (suspected) exposure to COVID-19; R27.0 Ataxia, unspecified; Z88.8 Allergy status to other drugs, medicaments and biological substances; Z79.899 Other long term (current) drug therapy; F32.9 Major depressive disorder, single episode, unspecified; Z86.73 Personal history of transient ischemic attack (TIA), and cerebral infarction without residual deficits; Z79.82 Long term (current) use of aspirin; F17.210 Nicotine dependence, cigarettes, uncomplicated; W01.0XXA Fall on same level from slipping, tripping and stumbling without subsequent striking against object, initial encounter; Y92.009 Unspecified place in unspecified non-institutional (private) residence as the place of occurrence of the external cause
CPT/HCPCS: 36415; 71045-TC; 72050-TC; 72070-TC; 72100-TC; 72170-TC; 73502; 73552; 80048-TC; 80061-TC; 81001; 83540-TC; 83735-TC; 84443-TC; 85025-TC; 85730-TC; 86850-TC; 87081-TC; 93307-TC; 93970-TC; 94799-TC; A4217; C1776; C9803; G0378; J0330; J0690; J1100; J1170; J1650; J1885; J2270; J2370; J2405; J2704; J2916; J3010; J3475; J3490; J7030; J7050; J7060

== ENCOUNTER 2022-04-07 11:50 | Emergency (ER) | payer OTHER ==
[~2022-04-07] VITALS: Ht 172.7 cm; Wt 63.0 kg
[~2022-04-07 11:50] MED LIST changes: +ATOR10TA PO; +ENOX40DI SUBCUT; +FERR325T23 PO; -Folic Acid PO; +GABA-536 PO; +HYDR-3976 GT; -METO25TA4 PO; +MIRT-90 PO; +PANT40TA49 PO; -Thiamine HCL PO
--- NOTE | 2022-04-07 12:03 | NUR ---
[id number] from home, c/o Left hip pain s/p L hip hemiarthroplasty 03/29/22 off [facility] since yesterday. The patient rates pain 01/09. No apparent deformity in the extremity noted. Will continue to monitor the patient.
--- NOTE | 2022-04-07 12:07 | NUR ---
ROLL MILL OPERATOR AT BEDSIDE FOR XRAY
[2022-04-07] MEDS ORDERED: TRAMADOL HCL 50 MG TABLET ONE (12:20)
[2022-04-07] MEDS ORDERED: TRAMADOL HCL 50 MG TABLET PO ONE (12:30)
[2022-04-07] MEDS ORDERED: TRAM50TA2 PO (13:25)
--- NOTE | 2022-04-07 13:38 | NUR ---
[facility] CALLED FOR TRANSPORT ETA 60 MIN PER YAAKOV.
--- NOTE | 2022-04-07 15:00 | NUR ---
CALLED [facility] 20 MINS NEEDED TO GET STAIR CHAIR.
--- NOTE | 2022-04-07 15:31 | NUR ---
Patient discharged to home in stable condition. Written and verbal after care instructions given. Patient verbalizes understanding of instruction.
[2022-04-07 15:32] VITALS: BP 108/55
== END 2022-04-07 15:32 | disposition home or self-care (01) ==
LOC: ER 11:52
DX: M25.552 Pain in left hip (principal); M79.605 Pain in left leg; I10 Essential (primary) hypertension; E78.5 Hyperlipidemia, unspecified; K21.9 Gastro-esophageal reflux disease without esophagitis; F32.A Depression, unspecified; Z86.73 Personal history of transient ischemic attack (TIA), and cerebral infarction without residual deficits; Z79.899 Other long term (current) drug therapy
CPT/HCPCS: 73502

== ENCOUNTER 2022-04-26 18:47 | Emergency (ER) | payer OTHER ==
[~2022-04-26] VITALS: Ht 172.7 cm; Wt 63.5 kg
[~2022-04-26 18:47] MED LIST changes: +TRAM50TA2 PO
--- NOTE | 2022-04-26 19:10 | NUR ---
radioactive waste disposal dispatcher at bedside for xray
--- NOTE | 2022-04-26 19:15 | NUR ---
dr joe made aware that pt requests for pain medication prior to xray being taken
[2022-04-26] MEDS ORDERED: ONDANSETRON HCL/PF 4 MG/2 ML VIAL ONE (19:27)
[2022-04-26] MEDS ORDERED: HYDROMORPHONE 1 MG/1 ML DISP.SYRIN ONE ×3 (19:27→22:13)
[2022-04-26] MEDS ORDERED: HYDROMORPHONE INJ 2 MG/ML DISP.SYRIN IV ONE ×3 (19:30→22:30)
[2022-04-26] MEDS ORDERED: ONDANSETRON HCL/PF 4 MG/2 ML VIAL IVP ONE (19:30)
[2022-04-26] MEDS ORDERED: PROPOFOL 20 ML IV ONE (19:54)
[2022-04-26] MEDS ORDERED: PROPOFOL 200 MG/20 ML VIAL IV ONE (20:00)
--- NOTE | 2022-04-26 20:15 | NUR ---
PATIENT IS FOR LEFT HIP CLOSE REDUCTION WITH MODERATE SEDATION. CONSENT SIGNED.
--- NOTE | 2022-04-26 20:15 | NUR ---
Miguel carey in ED - 04/26/22 at 2039 by TRE PATIENT IS FOR LEFT HIP CLOSE REDUCTION WITH MODERATE SEDATION. CONSENT SIGNED.
--- NOTE | 2022-04-26 20:17 | NUR ---
PROCEDURE TO START. REDUCTION TO BE DONE BY DR ORR, RT LUCILA GROVES, RN TO MONITOR PATIENT DURING PROCEDURING.
--- NOTE | 2022-04-26 20:17 | NUR ---
25MG OF PROPOFOL IV PUSH GIVEN BY DR ORR WITH IV NS RUNNING. VS BP 105/49mmHg, HR 96bpm, SAT 97%.
--- NOTE | 2022-04-26 20:17 | NUR ---
Note nathanielone in EDM - 04/26/22 at 2038 by TRE 25MG OF PROPOFOL IV PUSH GIVEN BY DR ORR WITH IV NS RUNNING. VS BP 105/49mmHg, HR 96bpm, SAT 97%.
--- NOTE | 2022-04-26 20:18 | NUR ---
PROPOFOL 25MG IV PUSH GIVEN BY DR ORR,. VS HR 96%, SATS 100%, BP 113/62mmHg. PATIENT IS SLEEPY BUT TALKING. MD TRIED TO RE ALIGN THE LEFT HIP/LEG BUT PT COMPLAINING OF PAIN.
--- NOTE | 2022-04-26 20:18 | NUR ---
Note nathanielone in EDM - 04/26/22 at 2038 by TRE PROPOFOL 25MG IV PUSH GIVEN BY DR ORR,. VS HR 96%, SATS 100%, BP 113/62mmHg. PATIENT IS SLEEPY BUT TALKING
--- NOTE | 2022-04-26 20:20 | NUR ---
PROPOFOL 25MG IV PUSH GIVEN BY DR ORR,. VS HR 96%, SATS 100%, BP 113/62mmHg. PATIENT IS SLEEPY BUT TALKING. MD TRIED TO RE ALIGN AGAIN THE LEFT HIP/LEG BUT PT COMPLAINING OF PAIN AN SHOUTING. VS 115/48mmHg, hr 108bpm. sats 100%.
--- NOTE | 2022-04-26 20:26 | NUR ---
VITALS RECHECKED. HR 100BPM, SATS 100%, BP 109/58mmHg. MD DECIDED TO STOP THE REDUCTION. WILL ADMIT PATIENT.
--- NOTE | 2022-04-26 20:30 | NUR ---
PATIENT IS AAOX4. LEG POSITIONED COMFORTABLY.
--- NOTE | 2022-04-26 20:30 | NUR ---
VS RECHECKED HR 98BPM, SATS 100%, BP 109/59mmHg
--- NOTE | 2022-04-26 20:51 | NUR ---
INDUSTRIAL HYGIENE ENGINEER AT BEDSIDE
--- NOTE | 2022-04-26 20:51 | NUR ---
COVID SWAB DONE AND SENT TO LAB
--- NOTE | 2022-04-26 20:57 | NUR ---
Miguel carey in [facility] - 04/26/22 at 2242 by MICHELLE LAB AT BEDSIDE
--- NOTE | 2022-04-26 20:58 | NUR ---
XRAY AT BEDSIDE
[2022-04-26 21:19] LABS: BASOPHILS % (AUTO) 0.4 % (0.0-2.0); HEMATOCRIT 25 % (33-45); HEMOGLOBIN 8.2 g/dL (11.5-14.8); LYMPHOCYTES # (AUTO) 1.8 K/uL (0.8-4.8); LYMPHOCYTES % (AUTO) 21.1 % (20.0-44.0); MEAN CORPUSCULAR HGB CONC 33 g/dl (31.0-36.0); MEAN CORPUSCULAR VOLUME 94 fL (82-100); MONOCYTES # (AUTO) 0.6 K/uL (0.1-1.30); MONOCYTES % (AUTO) 7.1 % (2.0-12.0); NEUTROPHILS # (AUTO) 6.1 K/uL (1.8-8.9); NEUTROPHILS % (AUTO) 70.4 % (43.0-81.0); PLATELET COUNT (AUTO) 474 K/uL (150-450); WHITE BLOOD COUNT (AUTO) 8.7 K/uL (4.3-11.0)
[2022-04-26 21:58] LABS: CALCIUM, SERUM 8.4 mg/dL (8.5-10.1); CREATININE 0.8 mg/dL (0.6-1.3); POTASSIUM 3.8 mmol/L (3.5-5.1)
[2022-04-26 22:18] LABS: EOSINOPHILS % (MANUAL) 1 % (0-4); LYMPHOCYTES % (MANUAL) 17 % (16-48); MONOCYTES % (MANUAL) 5 % (0-11.0); NEUTROPHILS % (MANUAL) 77 (42-76)
--- NOTE | 2022-04-26 22:46 | NUR ---
LABS FAXED TO [facility]. REQUESTED TO CALL HER BACK AT WITH COVID RESULT
[2022-04-27] MEDS ORDERED: HYDROMORPHONE 1 MG/1 ML DISP.SYRIN ONE ×2 (00:51→09:50)
[2022-04-27] MEDS ORDERED: HYDROMORPHONE 1 MG/1 ML DISP.SYRIN IV ONE ×2 (01:00→10:00)
--- NOTE | 2022-04-27 01:59 | NUR ---
PT IS ACCEPTED AT [facility] UNDER THE CARE OF DR. CASTELLON. PT IS GOING TO ROOM 214-B. ETA FOR AMBULANCE @ 1030 VIA [facility]
[2022-04-27] MEDS ORDERED: HYDROCODONE/APAP 5/325MG TABLET ONE (03:18)
[2022-04-27] MEDS ORDERED: HYDROCODONE/APAP 5/325MG TABLET PO ONE (04:00)
--- NOTE | 2022-04-27 04:18 | NUR ---
PT SLEEPING COMFORTABLY BREATHING EVEN AND UNLABORED. REMAINS ON MONITOR AND V/S WNL. CALL LIGHT WITHIN REACH.
--- NOTE | 2022-04-27 07:35 | NUR ---
NUMBER FOR REPORT [phone]
--- NOTE | 2022-04-27 07:42 | NUR ---
REPORT GIVEN TO HAROON FOR [facility]OME[facility]
--- NOTE | 2022-04-27 07:54 | NUR ---
PT RESTING COMFORTABLY IN BED, VITALS SIGNS ARE WITHIN NORMAL LIMITS.
[2022-04-27] MEDS ORDERED: HYDROMORPHONE MDV 0.5 MG in IV D5W 50 ML IV STA (09:48)
[2022-04-27 10:53] VITALS: BP 123/61
--- NOTE | 2022-04-27 10:54 | NUR ---
REPORT GIVEN TO CANCER RESEARCHER, PT TRASNPORTED TO [facility] IN STABLE CONDITION. PT L HIP DISLOCATION UNRESOLVED, PAIN MEDICAITON GIVEN 45 MINUTES PRIOR TO LEAVING. PT STATED PAIN LEVEL WAS A 6/10 PRIOR TO LEAVING FACILITY AND STATED IT IS TOLERABLE IF L LEG IS NOT MOVED.
== END 2022-04-27 11:12 | disposition short-term general hospital (02) ==
LOC: ER 18:49
DX: T84.021A Dislocation of internal left hip prosthesis, initial encounter (principal); Y79.2 Prosthetic and other implants, materials and accessory orthopedic devices associated with adverse incidents; Y92.89 Other specified places as the place of occurrence of the external cause; Z86.73 Personal history of transient ischemic attack (TIA), and cerebral infarction without residual deficits; E78.5 Hyperlipidemia, unspecified; K21.9 Gastro-esophageal reflux disease without esophagitis; Z20.822 Contact with and (suspected) exposure to COVID-19; I10 Essential (primary) hypertension; F32.A Depression, unspecified; Z79.01 Long term (current) use of anticoagulants; Z79.899 Other long term (current) drug therapy
CPT/HCPCS: 27265; 99285; 96374; 96375; 99152; 93005; 72170; 96376 ×2; 73503; 85025; 80048; 85007; 36415 ×2; 85730; 87426; 80320; J2704; J2405; J7030; J1170 ×6; C9803; J7060; 73502; G0480; G0500

== ENCOUNTER 2023-05-26 16:36 | Emergency (ER) | payer OTHER ==
[~2023-05-26] VITALS: Ht 170.2 cm; Wt 74.4 kg
[2023-05-26] MEDS ORDERED: TETRACAINE HCL 2% OPHTHALIC 30 ML BOTTLE EACHEYE ONE (17:00)
[2023-05-26] MEDS ORDERED: FLUORESCEIN SODIUM OPHTH 1 EA STRIP OP ONE (17:00)
[2023-05-26] MEDS ORDERED: FLUORESCEIN SODIUM OPHTH 1 EA STRIP ONE (17:01)
[2023-05-26 18:11] VITALS: BP 135/75; TEMP 98.7; O2SAT 98
== END 2023-05-26 18:05 | disposition home or self-care (01) ==
LOC: ER 16:38
DX: H53.9 Unspecified visual disturbance (principal); I10 Essential (primary) hypertension; E78.5 Hyperlipidemia, unspecified; K21.9 Gastro-esophageal reflux disease without esophagitis; F32.A Depression, unspecified; Z79.899 Other long term (current) drug therapy; Z60.2 Problems related to living alone